=== PATIENT | female | born 1950 | race Caucasian/White ===

== ENCOUNTER → 2018-05-20 12:54 | Outpatient (CLI) | payer MEDICARE, OTHER, SELFPAY ==
[2018-05-20 13:20] LABS: Hematocrit 44.4 % (36-46)
[2018-05-20 14:15] LABS: 585 Gram Check PASS; Amount Collected in g 585 GRAM; Postdiastolic BP 92; Postsystolic BP 128; Prediastolic 87; Presystolic 141; Pulse 70; Site of phlebotomy RIGHT AC; Zero Check Sebra Scale PASS
[2018-05-20 14:16] LABS: Dizziness NO; Swelling NO; Therapeutic Phleb Comment NO COMMENT
== END ==
PROVIDERS: Visit Provider Family Medicine
DX: E83.10 Disorder of iron metabolism, unspecified (principal)
CPT/HCPCS: 36415; 85014; 99195

== ENCOUNTER → 2018-11-30 10:06 | Outpatient (CLI) | payer MEDICARE, OTHER, SELFPAY ==
[2018-11-30 10:59] LABS: Hematocrit 41.9 % (36-46); Hemoglobin 14.3 g/dL (12.0-16.0)
[2018-11-30 11:09] LABS: 585 Gram Check PASS; Amount Collected in g 585 GRAM; Dizziness NO; Postdiastolic BP 81; Postsystolic BP 131; Prediastolic 86; Presystolic 132; Pulse 84; Site of phlebotomy RIGHT AC; Swelling NO; Therapeutic Phleb Comment NO COMMENT; Zero Check Sebra Scale PASS
== END ==
PROVIDERS: Visit Provider Family Medicine
DX: E83.10 Disorder of iron metabolism, unspecified (principal)
CPT/HCPCS: 36415; 85014; 85018; 99195

== ENCOUNTER → 2018-12-10 13:31 | Outpatient (CLI) | payer MEDICARE, OTHER, SELFPAY ==
--- NOTE | 2018-12-10 | DI.US.S_ITS ---
PROCEDURE: US ABDOMEN COMPLETE INDICATIONS: GASTRO-ESOPHAGEAL REFLUX DISEASE TECHNIQUE: Real-time scanning was performed of the abdominal and retroperitoneal organs, with image documentation. COMPARISON: None. FINDINGS: Liver: Liver is normal in size and homogeneous in echotexture. Gallbladder: Gallstones are seen. The gallbladder wall is not thickened, measuring 3 mm or less. No specific pericholecystic fluid is seen. The sonographic Lamb sign is mildly positive Biliary ducts: Intrahepatic bile ducts are non-dilated. Extrahepatic bile duct caliber measures 4 mm. Normal is 6-7 mm or less in diameter, or 10 mm or less post-cholecystectomy. Pancreas: Visualized portions of the pancreas are sonographically normal. Spleen: Spleen is normal in size and homogeneous in echotexture. Kidneys: Kidneys are normal in size and echotexture. Right kidney measures 11.3 cm long; left kidney measures 10.3 cm long. No hydronephrosis or nephrolithiasis. No solid masses. Aorta: Visualized aorta is normal in caliber at less than 3 cm. Iliacs: Proximal common iliac arteries are normal in caliber at less than 2.5 cm. IVC: Intrahepatic inferior vena cava is patent. Miscellaneous: No free abdominal fluid. This study is limited by bowel gas. IMPRESSION: Gallstones are seen and there is a mildly positive sonographic Lamb sign. No additional sonographic signs of cholecystitis are seen. Please correlate with physical examination findings, patient presentation, and laboratory values. Dictated by: Giovanni Wilson M.D. on 12/10/2018 at 15:56 Approved by: Giovanni Wilson M.D. on 12/10/2018 at 15:57
== END ==
PROVIDERS: PCP Family Medicine; Visit Provider Family Medicine
DX: K21.9 Gastro-esophageal reflux disease without esophagitis (principal); K80.20 Calculus of gallbladder without cholecystitis without obstruction
CPT/HCPCS: 76700

== ENCOUNTER → 2020-05-23 14:46 | Outpatient (CLI) | payer MEDICARE, OTHER, SELFPAY ==
--- NOTE | 2020-05-23 | DI.US.S_ITS ---
PROCEDURE: US THYROID INDICATIONS: thyroid nodule TECHNIQUE: Real-time scanning was performed of the thyroid gland, with image documentation. COMPARISON: None. FINDINGS: Right: Thyroid lobe measures 5.4 x 1.4 x 1.8 cm, and is diffusely heterogeneous in echotexture. Left: Thyroid lobe measures 2.7 x 0.6 x 1.0 cm, and is diffusely heterogeneous in echotexture. Isthmus: 2.0 mm thick. Nodule number: 1 Location: Right inferior Size: Unchanged at 2.1 x 1.0 x 1.2 cm. Composition: Solid Echogenicity: Isoechoic Shape: wider than tall. Margins: Smooth Echogenic foci: Macro calcification Total points: 5 ACR TI-RADS category: Moderately suspicious Nodule number: 2 Location: Right inferior Size: Unchanged at 0.4 x 0.3 x 0.6 cm. Composition: Solid Echogenicity: Hyperechoic Shape: wider than tall. Margins: Smooth Echogenic foci: None Total points: 3 ACR TI-RADS category: Mildly suspicious Nodule number: 3 Location: Left mid Size: 0.2 5.1 x 0.3 cm Composition: Solid Echogenicity: Hypoechoic Shape: wider than tall. Margins: Smooth Echogenic foci: None Total points: 4 ACR TI-RADS category: Moderately suspicious IMPRESSION: Stable appearance of bilateral thyroid nodules. Recommend continued followup ultrasound as detailed below. ACR TI-RADS definitions and recommendations: TI-RADS 1 (benign): 0 points. FNA not needed. TI-RADS 2 (not suspicious): 2 points. FNA not needed. TI-RADS 3 (mildly suspicious): 3 points. * FNA if 2.5 cm or larger, follow up if 1.5 cm or larger (at 1, 3, and 5 years). TI-RADS 4 (moderately suspicious): 4-6 points. * FNA if 1.5 cm or larger, follow up if 1 cm or larger (at 1, 2, 3, and 5 years). TI-RADS 5 (highly suspicious): 7 points or more. * FNA if 1 cm or larger, follow up if 0.5 cm or larger (every year for 5 years). Dictated by: Niraj Toussaint Tomasa Interpreted: Keily Lucia MD on 05/24/2020 at 13:36 Approved by: Keily Lucia M.D. on 05/24/2020 at 15:36
--- NOTE | 2020-05-23 | DI.MG.S_ITS ---
BILATERAL DIGITAL SCREENING MAMMOGRAM 3D/2D WITH CAD: 05/23/2020 CLINICAL: Routine screening. Comparison is made to exams dated: 05/18/2017 mammogram, 03/14/2016 mammogram, and 02/27/2015 mammogram - [facility]. The tissue of both breasts is predominantly fatty. Current study was also evaluated with a Computer Aided Detection (CAD) system. No significant masses, calcifications, or other findings are seen in either breast. There has been no significant interval change. IMPRESSION: NEGATIVE There is no mammographic evidence of malignancy. A 1 year screening mammogram is recommended. This exam was interpreted at Station ID: [id number]. NOTE: For mammograms, a report in lay terms will be sent to the patient. Approximately 15% of breast malignancies will not be visualized mammographically. In the management of a palpable breast mass, a negative mammogram must not discourage biopsy of a clinically suspicious lesion. Electronically Signed By: Michael loya/jaquan:05/23/2020 15:21:08 letter sent: Normal Exam ACR BI-RADS Category 1: Negative [id number]
== END ==
PROVIDERS: PCP Nurse Practitioner Family; Referring Provider Nurse Practitioner Family; Visit Provider Nurse Practitioner Family
DX: Z12.31 Encounter for screening mammogram for malignant neoplasm of breast (principal); E04.2 Nontoxic multinodular goiter
CPT/HCPCS: 76536; 77063; 77067

== ENCOUNTER → 2022-01-15 11:25 | Outpatient (CLI) | payer MEDICARE, OTHER, SELFPAY ==
--- NOTE | 2022-01-15 | DI.US.S_ITS ---
PROCEDURE: US THYROID INDICATIONS: Nontoxic multinodular goiter TECHNIQUE: Real-time scanning was performed of the thyroid gland, with image documentation. COMPARISON: [facility], US, US THYROID, 05/23/2020, 15:33. FINDINGS: Right: Thyroid lobe measures 3.8 x 1.3 x 1.7 cm, and is homogeneous in echotexture. Left: Thyroid lobe measures 3.3 x 1.0 x 1.7 cm, and is homogenous in echotexture. Isthmus: 1 mm thick. Nodule number: 1 Location: Right lobe, mid-inferior Size: 2.0 x 1.2 x 0.9 cm. Previously 2.1 x 1.0 x 1.2 cm, no significant change. Composition: Solid Echogenicity: Isoechoic Shape: wider than tall. Margins: Smooth Echogenic foci: Macrocalcification Total points: 4 ACR TI-RADS category: 4, moderately suspicious Nodule number: 2 Location: Right lobe inferior Size: 0.6 x 0.5 x 0.5 cm. Previously 0.4 x 0.3 x 0.6 cm, no significant change Composition: Solid Echogenicity: Hyperechoic Shape: wider than tall. Margins: Smooth Echogenic foci: None Total points: 3 ACR TI-RADS category: 3, mildly suspicious Nodule number: 3 Location: Left lobe inferior Size: 0.5 x 0.4 x 0.4 cm. Previously 0.2 x 0.1 x 0.3 cm, slight increase in size Composition: Likely Solid, difficult to characterize due to small size Echogenicity: Hypoechoic Shape: wider than tall. Margins: Smooth Echogenic foci: None Total points: 4 ACR TI-RADS category: 4, moderately suspicious IMPRESSION: 1. The previously demonstrated dominant nodule at the right mid-inferior thyroid is not significantly changed in size. It meets TI-RADS criteria for FNA recommendation. 2. Other small nodules do not meet TI-RADS criteria for FNA recommendation. A subcentimeter nodule at the left inferior thyroid has slightly increased in size since before. Attention on follow-up is recommended. ACR TI-RADS definitions and recommendations: TI-RADS 1 (benign): 0 points. FNA not needed. TI-RADS 2 (not suspicious): 2 points. FNA not needed. TI-RADS 3 (mildly suspicious): 3 points. * FNA if 2.5 cm or larger, follow up if 1.5 cm or larger (at 1, 3, and 5 years). TI-RADS 4 (moderately suspicious): 4-6 points. * FNA if 1.5 cm or larger, follow up if 1 cm or larger (at 1, 2, 3, and 5 years). TI-RADS 5 (highly suspicious): 7 points or more. * FNA if 1 cm or larger, follow up if 0.5 cm or larger (every year for 5 years). Dictated by: Jama Seymour M.D. on 01/15/2022 at 18:39 Approved by: Jama Seymour M.D. on 01/15/2022 at 18:49
== END ==
PROVIDERS: PCP Nurse Practitioner Family; Referring Provider Family Medicine; Visit Provider Family Medicine
DX: E04.2 Nontoxic multinodular goiter (principal)
CPT/HCPCS: 76536

== ENCOUNTER → 2022-05-01 14:15 | Outpatient (CLI) | payer MEDICARE, OTHER, SELFPAY ==
--- NOTE | 2022-05-01 | PATH_ITS ---
Note [facility] Accession Number: [id number] TESTS RESULT FLAG UNITS REF RANGE LAB Clinician Provided Cytology Information No. of containers..01 Other (Miscellaneous) No. of containers..08 Previously Prepared Cytology Slide Source: RIGHT THYROID MID/INFERIOR NODULE DIAGNOSIS: RIGHT THYROID MID/INFERIOR NODULE INCONCLUSIVE. [place] CATEGORY III. ATYPIA OF UNDETERMINED SIGNIFICANCE. MOLECULAR STUDIES REQUESTED ON IRNA VIAL. Pathologist ICD10: R89.6, E04.2 Clinical history: Right: Thyroid lobe measures 3.8 x x 1.7 cm, and is homogeneous in echotexture. Left: Thyroid lobe measures 3.3 x 1.0 x 1.7 cm, and is homogenous in echotexture. Isthmus: 1 mm thick. IMPRESSION: 1.The previously demonstrated dominant nodule at the right mid-inferior thyroid is not significantly changed in size, It meets T I-RADS criteria for FNA recommendation. 2. Other small nodules do not meet T I-RADS criteria for FNA recommendation. A subcentimeter nodule at the left inferior thyroid has slightly increased in size since before. Attention on follow-up is recommended. Signed out by: Tamera Riley MD, Pathologist NPI- [id number] Performed by: Lio Montez, Document Controller ([facility]) Gross description: 30 CC, RED, CLEAR RECIEVED: IN CYTOLYT WITH 9 ALCOHOL FIXED AND 9 QUICK STAINED SLIDES ALSO 1 RNA VIAL WAS RECEIVED. . /VDU 05/02/2022 0826 Local FLAG LEGEND: L-Low Normal,H-High Normal,LL-Alert Low,HH-Alert High <-Panic Low,>-Panic High,A-Abnormal,AA-Critical Abnormal Performed at: 01 [facility] [address] [place] [address] [address], [place] [address] Ric Henry MD, Performed at: 01 [facility] [address] [place] [address] [address], [place], [place] [id number] MD Ric Henry MD Phone: [phone]
--- NOTE | 2022-05-01 | DI.US.S_ITS ---
PROCEDURE: US FINE NEEDLE ASPIRATION INDICATIONS: nontoxic singular thyroid nodule TECHNIQUE: The indications, alternatives, benefits, risks, and complications of the procedure were explained to the patient. Written informed consent was obtained and placed in the chart. The thyroid region was examined sonographically and a site was chosen for ultrasound guided percutaneous sampling. The skin was prepared and draped in the usual fashion, and anesthetized with 1% lidocaine infiltrated from the skin down to the thyroid gland. Multiple passes were then performed, with contents emptied into an appropriate pathology specimen container. A bandage was applied to the area of access at completion of the study. COMPARISON: None. FINDINGS: Location(s) of lesion(s) sampled: [place] right thyroid large ule. [place]: 25 gauge hypodermic needles. Number of passes: 9 Medications: 1% lidocaine for local anaesthesia. Complications: None. IMPRESSION: Successful ultrasound-guided thyroid nodule fine needle aspiration, with cytology results pending. Please see chart below for management recommendations based on cytology results. [facility] ReportingRecommendationsNon-diagnostic* Repeat US-guided FNA, with on-site cytology evaluation if possible. * Repeated non-diagnostic nodules without high suspicion US features: close observation vs surgical consult. * Consider surgery if nodule has high suspicion US features, grows >20% in 2 dimensions on followup, or patient has clinical risk factors for malignancy. Benign* If nodule has high suspicion US features: repeat US and FNA within 12 months. * If nodule has low to intermediate suspicion US features: repeat US at 12-24 months. If nodule grows (20% increase in at least 2 dimensions, with minimal increase of 2 mm or >50% change in volume), or development of new suspicious US features, then repeat FNA or continue followup. * If nodule has very low suspicion US features: followup US at >24 months. Atypia of undetermined significance, follicular lesion of undetermined significanceRepeat FNA, molecular testing, followup US, or surgical consult.Follicular neoplasm, suspicious for follicular neoplasmSurgical consult; also consider molecular testing. Suspicious for malignancySurgical consult.MalignantSurgical consult. Dictated by: Demarcus Valera M.D. on 05/01/2022 at 16:07 Approved by: Demarcus Valera M.D. on 05/01/2022 at 16:07
== END ==
PROVIDERS: PCP Nurse Practitioner Family; Referring Provider Nurse Practitioner Family; Visit Provider Nurse Practitioner Family
DX: E04.1 Nontoxic single thyroid nodule (principal)
CPT/HCPCS: 10005

== ENCOUNTER → 2025-06-16 09:11 | Outpatient (CLI) | payer MEDICARE, SELFPAY ==
--- NOTE | 2025-06-16 09:21 | DI.MRI.S_ITS ---
PROCEDURE: MR KNEE LT WO CON INDICATIONS: INJURY TECHNIQUE: Noncontrast sagittal PD fast spin echo and T2 fast spin echo with fat saturation, sagittal 3-D FLASH with fat saturation; coronal T1 spin echo and PD fast spin echo with fat saturation, and axial PD fast spin echo with fat saturation through the knee. COMPARISON: [facility], CR, XR KNEE 4+ VIEWS RIGHT, 04/26/2024, 15:38. FINDINGS: Image quality: Diagnostic. Menisci: Multidirectional degenerative tearing of the medial meniscal body through posterior horn with horizontal cleavage component of the meniscal body, incomplete radial tear component of the central posterior horn, and tear extending into the posterior root. This results in mild extrusion of the medial meniscus. The lateral meniscus is intact. Ligaments: The ACL is intact. The PCL is intact. The MCL is intact. The LCL is intact. Mild insertional tendinosis of popliteus. Otherwise the posterolateral supporting structures are intact. Extensor Mechanism: Quadriceps tendon is intact. The patellar tendon is intact. The patellar retinacula are intact. Osseous Structures: There is no fracture or dislocation. No suspicious marrow replacing process. There is a small joint effusion. Hoffa's fat pad is unremarkable. Articular Cartilage: Patellofemoral compartment: Full-thickness articular cartilage loss of the lateral patellar facet and lateral femoral trochlea. Medial compartment: Deep to full-thickness articular cartilage loss of the peripheral weight-bearing condyle and tibial plateau. Lateral compartment: Hypointense tibial articular cartilage with multifocal intermediate articular cartilage thinning and fraying. Other: The visualized muscles and tendons appear normal for age. No Hernandez's cyst. Normal neurovascular signal. Subcutaneous soft tissues appear normal. IMPRESSION: 1. 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 Moderate chondromalacia with grade 3-4 chondromalacia in the peripheral weight-bearing medial compartment. 2. Multidirectional degenerative tearing of the medial meniscal body, posterior horn and posterior root. Dictated by: Preet Parker M.D. on 06/16/2025 at 11:46 Approved by: Preet Parker M.D. on 06/16/2025 at 11:50
== END ==
PROVIDERS: PCP Nurse Practitioner Family; Referring Provider Nurse Practitioner Family; Visit Provider Physician Assistant
DX: S89.92XA Unspecified injury of left lower leg, initial encounter (principal); M23.222 Derangement of posterior horn of medial meniscus due to old tear or injury, left knee; M17.12 Unilateral primary osteoarthritis, left knee; M22.42 Chondromalacia patellae, left knee
CPT/HCPCS: 73721